=== PATIENT | female | born 1940 | race Caucasian/White ===

== ENCOUNTER 2018-10-15 11:02 | Emergency (ER) | payer OTHER ==
[~2018-10-15] VITALS: Ht 160 cm; Wt 56.7 kg
[2018-10-15] MEDS ORDERED: LISINOPRIL10 MG PO (11:15)
[2018-10-15] MEDS ORDERED: PERCOCET PO (11:16)
[2018-10-15] MEDS ORDERED: CELEBREX 200 M200 M1 PO (11:16)
[2018-10-15] MEDS ORDERED: NEURONTIN 300M300 M2 PO (11:16)
[2018-10-15] MEDS ORDERED: PERCOCET 5-3251 EACH PO (12:23)
[2018-10-15 13:24] VITALS: BP 131/67
== END 2018-10-15 13:30 | disposition home or self-care (01) ==
LOC: ER 11:02
DX: G89.18 Other acute postprocedural pain (principal); M79.671 Pain in right foot; I10 Essential (primary) hypertension; F17.210 Nicotine dependence, cigarettes, uncomplicated; Z96.641 Presence of right artificial hip joint